=== PATIENT | male | born 1995 | race American Indian/Alaskan Native ===

== ENCOUNTER 2019-01-02 15:20 | Emergency (ER) | payer OTHER ==
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
[2019-01-02 20:08] VITALS: BP 115/66
== END 2019-01-02 20:06 ==
LOC: EDSEX → ED 15:20
DX: Z20.2 Contact with and (suspected) exposure to infections with a predominantly sexual mode of transmission (principal); R21 Rash and other nonspecific skin eruption; F17.200 Nicotine dependence, unspecified, uncomplicated
CPT/HCPCS: 36415; 86592; 86593; 86780; 87591; 99282